=== PATIENT | male | born 1995 | race Caucasian/White ===

== ENCOUNTER 2019-03-05 11:25 | Emergency (ER) | payer SELFPAY ==
--- NOTE | 2019-03-05 11:49 | ED Physician Documentation ---
General Adult - HISTORIAN Historian: patient, other - HPI Chief Complaint: General Adult Further Comments: yes (23 year old male patient presents status post being hit by a large tree limb in the right shoulder. States limb rolled down the back of his right shoulder. Cut on left elbow from [employer]. Last tetanus unknown.) - ROS CONST: no problems EYES/ENT: none CVS/RESP: none GI/: none MS/SKIN/LYMPH: none NEURO/PSYCH: denies: headache, fainting, dizziness, tingling, numbness, difficu lty walking, difficulty with speech, anxiety, depression, other - PAST HX Past History: none Other History: none Surgeries/Procedures: other (appendectomy) Allergies/Adverse Reactions: Allergies Allergy/AdvReac Type Severity Reaction Status Date / Time No Known Allergies Allergy Verified 03/05/19 11:31 Home Medications: Ambulatory Orders Medication Instructions Recorded Cephalexin [Keflex] 500 mg PO TID #21 capsule 03/05/19 Mupirocin 2% Oint. [Bactroban] 1 appl TP BID #1 tube 03/05/19 - SOCIAL HX Smoking History: cigarettes - FAMILY HX Family History: No - REVIEWED ASSESSMENTS Nursing Assessment Reviewed: Yes Vitals Reviewed: Yes Procedures Wound Location: other (left elbow) Wound's Depth, Shape: linear (x2) Irrigated w/ Saline (ccs): 500 Betadine Prep?: No (chlorhexidne) Anesthesia: Lidocaine w/ Epi (with neut) Volume of Anesthetic: 9 Wound Repaired With: sutures Suture Size/Type: 5:0 Progress: Procedure Note laceration: Length: #1 5.5cm laceration #2 2 cm Location: left medial elbow Wound cleaned with chlorhexidine and NS; anesthetized with Lidocaine 1% with and Neut 10 cc total to both lacerations - patient tolerated well. Irrigated with 500ml NS; dirt and wood chips irrigated out Closed using sterile technique, interrupted sutures #1 5.0 ethilon x 9 sutures #2 5.0 ethilon x 3 sutures Wound edges well approximated. Tetanus: given in ER today ED Results Lab/Radiology - Radiology Radiology Impressions: Examination: Plain film right shoulder History: INJURY, HIT WITH TREE; Comparison exams: None provided Findings: 3 views of the right shoulder demonstrate normal cortical margins. No evidence for fracture or dislocation. No soft tissue abnormality Impression: No acute osseous process. Electronically signed on Mar 05, 2019 12:02:40 PM CDT by: John Weeks - Orders Orders: ED Orders Category Date Time Status SHOULDER 2 VIEWS OR MORE [RAD] Stat Exams 03/05/19 Ordered UA W/MICRO IF INDICATED Stat Lab 03/05/19 11:40 Ordered Diph,Pertuss(Acell),Tet Vac/Pf [Adacel] Med 03/05/19 11:39 Once 0.5 ml IM .ONCE ONE Ketorolac Tromethamine [Toradol] Med 03/05/19 11:39 Once 60 mg IM NOW ONE Lidocaine 1%/Epinephrine [Xylocaine 1%-EPI 1:100,000] Med 03/05/19 11:40 Once 5 ml IJ NOW ONE Sodium Bicarbonate [Neut] Med 03/05/19 11:40 Once 2.4 meq INJ NOW ONE General Adult Physical Exam - PHYSICAL EXAM GENERAL APPEARANCE: mild distress EENT: eye inspection normal, SEVERO RESPIRATORY: no resp distress, chest non-tender, breath sounds normal CVS: reg rate & rhythm, heart sounds normal, equal pulses, no murmur, no gallop, PMI nml, no JVD, no friction rub, 24 ABDOMEN: soft, no organomegaly, normal bowel sounds, no abdominal bruit, no distension SKIN: warm/dry, normal color, other (large abrasion right posterior shoulder - 7cmx 8cm; #1 laceration - 5.5 cm left medial elbow; #3 2 cm - left medial elbow) EXTREMITIES: tenderness (right shoulder - pain with full abduction and adduction of shoulder; unable to full extend over head. ) NEURO: oriented X3, CN's nml as tested, motor nml, sensation nml, mood/affect nml Discharge Clincal Impression: Abrasions of multiple sites Laceration of elbow Qualifiers: Encounter type: initial encounter Laterality: left Qualified Code(s): S51.012A - Laceration without foreign body of left elbow, initial encounter Shoulder contusion Qualifiers: Encounter type: initial encounter Laterality: right Qualified Code(s): S40.011A - Contusion of right shoulder, initial encounter Prescriptions: Cephalexin [Keflex] 500 mg PO TID #21 capsule Mupirocin 2% Oint. [Bactroban] 1 appl TP BID #1 tube Referrals: Primary Doctor,No [Primary Care Provider] - 2 Days Additional Instructions: Keep the wound clean and dry until it has healed. You can wash or shower after 24 hours. Do not soak the wound in water and make sure it is dry after bathing (gently pat the area dry with a clean towel). Do not get into a swimming pool, hot tub, robins or river until your stitches are removed. To remove your dressing, gently pull it off. If needed, you can dampen it with water then gently pull it off. Clean the laceration twice a day with hibiclens and rinse with water clean away any scabbed area Apply thin coat of antibiotic ointment after cleaning the wound. Cover with non-adherent bandage if able. If you have pain, take simple pain relief medication such as Tylenol or ibuprofen. If bandages or dressings get wet, they will need to be changed. Call your doctor for any signs of symptom of infection redness, drainage, pain. Have your stitches removed at your doctors office in 10 days. Discharged with bactroban ointment apply a thin coat twice a day. Alternate with Ibuprofen 600-800mg three times a day with food as needed. Do not take for more than 5 days in a row. You may also use Tylenol every 4hour as needed for pain. Limit your dose to less than 4 G per day. Condition: Stable Disposition: 01 HOME, SELF-CARE Decision to Admit: NO Decision Time: 12:26
[2019-03-05] MEDS: LIDOCAINE HCL 1%/EPI. (1:100,000) MDV 20ML VIAL IJ ONE (12:01)
[2019-03-05] MEDS: KETOROLAC TROMETHAMINE 60 MG/2 ML VIAL IM ONE (12:02)
[2019-03-05] MEDS: SODIUM BICARBONATE 2.4 MEQ/5 ML VIAL INJ ONE (12:02)
[2019-03-05] MEDS: DIPH,PERTUSS(ACELL),TET VAC/PF 0.5 ML DISP.SYRIN IM ONE (12:02)
[2019-03-05 12:10] VITALS: BP 113/58
--- NOTE | 2019-03-05 17:16 | Diagnostic Imaging Report ---
RACHELLE SCHNEIDER (SLASHER TENDER HELPER) - ER [facility] [id number] [facility].[address] [id number] Report Submission Date: Mar 05, 2019 12:02:40 PM CDT Patient Study Name: BERTRAND WOODALL Date: Mar 05, 2019 11:33:16 AM CDT Modality Type: DX Gender: M Description: SHOULDER 2 VIEWS OR MORE : 97 Institution: [facility] Physician: RACHELLE SCHNEIDER (SLASHER TENDER HELPER) - ER Examination: Plain film right shoulder History: INJURY, HIT WITH TREE; Comparison exams: None provided Findings: 3 views of the right shoulder demonstrate normal cortical margins. No evidence for fracture or dislocation. No soft tissue abnormality Impression: No acute osseous process. Electronically signed on Mar 05, 2019 12:02:40 PM CDT by: John VAUGHN
== END 2019-03-05 12:32 | disposition home or self-care (01) ==
LOC: ED 11:25
DX: S51.012A Laceration without foreign body of left elbow, initial encounter (principal); S40.011A Contusion of right shoulder, initial encounter; W29.3XXA Contact with powered garden and outdoor hand tools and machinery, initial encounter
CPT/HCPCS: 12002; 73030; 90471; 90715; 96372; 99283; J1885; J7030